=== PATIENT | male | born 1990 | race Hispanic/Latino ===

== ENCOUNTER 2016-10-23 15:43 | Emergency (ER) | payer OTHER ==
[2016-10-23 15:44] VITALS: BMI 20.9
[2016-10-23 16:18] VITALS: BP 106/63; PULSE 67; RESP 17; TEMP 99; O2SAT 97
--- NOTE | 2016-10-23 16:45 | ED PDOC ---
Arrival/HPI - General Historian: Patient - General Chief Complaint: Abnormal Skin Integrity Time Seen by Provider: 10/23/16 16:04 - History of Present Illness Narrative History of Present Illness (Text): 10/23/16 16:42 Patient reports injuring his L hand and wrist when he was using a machine at work and his hand "got caught," event occurred just [employer]. Otherwise: (-) numbness, (-) other injury. Patient is L hand dominant. PMD Black (Santosh LÓPEZ,Serena Braga) Past Medical History - Provider Review Nursing Documentation Reviewed: Yes - Infectious Disease Hx of Infectious Diseases: None - Tetanus Immunization Tetanus Immunization: Up to Date - Cardiac Hx Cardiac Disorders: No - Pulmonary Hx Respiratory Disorders: No - Neurological Hx Headaches: Yes Other/Comment: shingles - HEENT Hx HEENT Disorder: No - Renal Hx Renal Disorder: No Other/Comment: hyponatremia - Endocrine/Metabolic Hx Endocrine Disorders: No - Hematological/Oncological Hx Shingles: Yes - Integumentary Hx Dermatological Disorder: No - Musculoskeletal/Rheumatological Hx Musculoskeletal Disorders: No - Gastrointestinal Hx Gastrointestinal Disorders: No - Genitourinary/Gynecological Hx Genitourinary Disorders: No - Psychiatric Hx Psychophysiologic Disorder: No Hx Depression: No Hx Emotional Abuse: No Hx Physical Abuse: No Hx Substance Use: Yes - Anesthesia Hx Anesthesia: No Hx Anesthesia Reactions: No Hx Malignant Hyperthermia: No - Suicidal Assessment Feels Threatened In Home Enviroment: No Family/Social History - Physician Review Nursing Documentation Reviewed: Yes Family/Social History: No Known Family HX Smoking Status: Heavy Smoker > 10 Cigarettes Daily Hx Alcohol Use: Yes Frequency of alcohol use: Socially Hx Substance Use: Yes Substance used: marijuana Hx Substance Use Treatment: No Allergies/Home Meds Allergies/Adverse Reactions: Allergies No Known Allergies Allergy (Verified 06/06/16 20:55) Review of Systems - Review of Systems Constitutional: Normal. absent: Fatigue, Weight Change, Fevers Musculoskeletal: Normal, Arthralgias. absent: Back Pain, Neck Pain Skin: Normal. absent: Rash, Pruritis, Skin Lesions Physical Exam - Physical Exam Narrative Physical Exam (Text): 10/23/16 16:45 GENERAL APPEARANCE: Patient is awake, alert, oriented x 3, in moderate painful distress. SKIN: Warm, dry; (-) cyanosis. HAND: (+) 2 abrasions, (+) tenderness, (+) swelling, (-) ecchymosis of the dorsal proximal hand; (-) crepitus, (-) deformity. Tendon function intact. (- ) distal neurovascular deficit. 2 point discrimination intact. Remainder of the hand and all digits are normal with no injury, no tenderness. WRIST: (+) Tenderness, (+) swelling, (-) ecchymosis of the dorsal wrist. (-) deformity. (-) snuff-box tenderness. (-) distal neurovascular deficit. Elbow, forearm: (-) tenderness, (-) injury. (Santosh LÓPEZ,Serena Braga) Vital Signs Temp Pulse Resp BP Pulse Ox 10/23/16 16:05 99 F 67 17 106/63 97 Medical Decision Making ED Course and Treatment: I was available for consultation during PA evaluation. The chart reviewed by me , and I agree with disposition. The documented history was done by the physician gear lapping machine operator. The documented physical exam was done by the physician gear lapping machine operator. The documented procedures were done by the physician gear lapping machine operator. (Theo Mejia) 10/23/16 16:47 26 yo M presents after traumatic injury to the L hand and wrist. XR L hand / wrist ordered. Given tramadol po. XR L hand: (+) FB to the mid phalanx of the 5th digit, no fracture, no dislocation, as read by PA and confirmed by the radiologist. XR L wrist: no fracture, no dislocation, as read by PA and confirmed by the radiologist. X-ray results discussed with the patient in great detail. Of note patient states that the foreign body in his fifth digit is not new and did not have been from the injury today. He states that he is unaware that he had a foreign body in his fifth finger and has no recollection of how the foreign body could have become embedded inside of his finger. Wound was cleaned, bacitracin and clean dressing applied. Alexandro wrap applied to the left hand by PA. Patient advised to continue elevating his left hand and wrist and to continue to apply ice for the next 3 days without fail Patient states he fully agrees with and understands discharge instructions. States that he agrees with the plan and disposition. Verbalized and repeated discharge instructions and plan. I have given the patient opportunity to ask any additional questions. Follow up with workman's comp in 1-2 days without fail. Advised to take medication as prescribed. Return to the emergency room at any time for any new or worsening symptoms. (Santosh LÓPEZ,Serena Braga) - RAD Interpretation Radiology Orders: 10/23/16 16:32 HAND LEFT 3 VIEWS ROUTINE [RAD] Stat WRIST, LEFT 3 VIEWS [RAD] Stat - Medication Orders Current Medication Orders: Discontinued Medications Naproxen (Anaprox Ds) 550 mg PO ONCE STA Stop: 10/23/16 17:48 Last Admin: 10/23/16 17:57 Dose: 550 mg Tramadol HCl (Ultram) 50 mg PO STAT STA Stop: 10/23/16 16:33 Last Admin: 10/23/16 16:52 Dose: 50 mg Tramadol HCl (Ultram) 50 mg PO STAT STA Stop: 10/23/16 17:48 Last Admin: 10/23/16 17:57 Dose: 50 mg - PA / LEARNING DISABLED TEACHER / Resident Statement MD/DO has reviewed & agrees with the documentation as recorded. Disposition/Present on Arrival - Present on Arrival Any Indicators Present on Arrival: No History of DVT/PE: No History of Uncontrolled Diabetes: No Urinary Catheter: No History of Decub. Ulcer: No History Surgical Site Infection Following: None - Disposition Have Diagnosis and Disposition been Completed?: Yes Disposition Time: 18:00 Patient Plan: Discharge - Disposition Diagnosis: Crushing injury of hand, left Disposition: HOME/ ROUTINE Condition: GOOD Discharge Instructions (ExitCare): Crush Injury (ED) Print Language: NAMIBIAN Additional Instructions: Thank you for letting us take care of you today. You were treated for crush injury to the left hand and wrist. The emergency medical care you received today was directed at your acute symptoms. If you were prescribed any medication , please fill it and take as directed. It may take several days for your symptoms to resolve. Return to the Emergency Department if your symptoms worsen , do not improve, or if you have any other problems. Please contact workman's comp doctor in 2 days for re-evaluation and follow up. Bring any paperwork you were given at discharge with you along with any medications you are taking to your follow up visit. Our treatment cannot replace ongoing medical care by a primary care provider (PCP) outside of the emergency department. Thank you for allowing the [facility] team to be part of your care today. Prescriptions: Naproxen 500 mg PO BID #30 tab traMADol [Ultram] 50 mg PO TID #15 tab Referrals: Linda Adamson MD [Primary Care Provider] - Follow up with primary Calvin Sharpe MD [Staff Provider] - Follow up with primary Forms: WORK NOTE
--- NOTE | 2016-10-23 17:41 | RAD ---
PROCEDURE: Left hand radiographs Left wrist radiographs HISTORY: trauma COMPARISON: None available. FINDINGS: BONES: No acute displaced fracture. JOINTS: No dislocation. SOFT TISSUES: 4 mm linear radiopaque density within the soft tissues at the level of the 5th middle phalanx, reyez aspect consistent with foreign body. OTHER FINDINGS: None. IMPRESSION: 4 mm linear radiopaque density within the soft tissues at the level of the 5th middle phalanx, reyez aspect consistent with foreign body.
[2016-10-23] MEDS ORDERED: Naproxen 550 mg Tab PO STA (17:47)
== END 2016-10-23 18:00 | disposition home or self-care (01) ==
LOC: ED 15:43
DX: S67.22XA Crushing injury of left hand, initial encounter (principal); W31.9XXA Contact with unspecified machinery, initial encounter; Y92.89 Other specified places as the place of occurrence of the external cause; Y99.0 Civilian activity done for income or pay; F17.210 Nicotine dependence, cigarettes, uncomplicated

== ENCOUNTER 2017-08-11 09:21 | Emergency (ER) | payer OTHER ==
[2017-08-11 09:23] VITALS: BMI 20.9
[2017-08-11 09:31] VITALS: BP 114/56; PULSE 60; RESP 20; TEMP 97.8; O2SAT 98
[2017-08-11] MEDS ORDERED: Sodium Chloride 0.9% 250 ML IV STA (09:51)
--- NOTE | 2017-08-11 09:57 | ED PDOC ---
Arrival/HPI - General Historian: Patient - History of Present Illness Time/Duration: 24 hours Symptom Onset: Sudden Symptom Course: Worsening Quality: Stabbing - General Chief Complaint: Eye Problem Time Seen by Provider: 08/11/17 09:48 - History of Present Illness Narrative History of Present Illness (Text): 08/11/17 09:52 Patient is a 27M with no PMH who comes to the ED with a CC of pain in the R. eye. Patient states he was cutting wood in his apartment working on building cabinets when he felt a foreign body hit his eye. He was wearing protective glasses at the time but it still managed to hit him. Patient states after the initial event he flushed his eye and it felt better but when he woke up he found himself in excruciating pain saying it feels like someone scratched his eye. No loss of vision occurred. Patient does not wear eye glasses or contact lenses. (Navneet Larsen) Past Medical History - Infectious Disease Hx of Infectious Diseases: None - Tetanus Immunization Tetanus Immunization: Up to Date - Cardiac Hx Cardiac Disorders: No - Pulmonary Hx Respiratory Disorders: No - Neurological Hx Neurological Disorder: Yes Hx Headaches: Yes Other/Comment: shingles - HEENT Hx HEENT Disorder: No - Renal Hx Renal Disorder: Yes Other/Comment: hyponatremia - Endocrine/Metabolic Hx Endocrine Disorders: No - Hematological/Oncological Hx Blood Disorders: Yes Hx Shingles: Yes - Integumentary Hx Dermatological Disorder: No - Musculoskeletal/Rheumatological Hx Musculoskeletal Disorders: No - Gastrointestinal Hx Gastrointestinal Disorders: No - Genitourinary/Gynecological Hx Genitourinary Disorders: No - Psychiatric Hx Psychophysiologic Disorder: No Hx Depression: No Hx Emotional Abuse: No Hx Physical Abuse: No Hx Substance Use: Yes - Anesthesia Hx Anesthesia: No Hx Anesthesia Reactions: No Hx Malignant Hyperthermia: No - Suicidal Assessment Feels Threatened In Home Enviroment: No Family/Social History Family/Social History: Unknown Family HX Smoking Status: Heavy Smoker > 10 Cigarettes Daily Hx Alcohol Use: Yes Hx Substance Use: Yes Substance used: marijuana Hx Substance Use Treatment: No Allergies/Home Meds Allergies/Adverse Reactions: Allergies No Known Allergies Allergy (Verified 08/11/17 09:24) Review of Systems - Review of Systems Constitutional: Normal Eyes: Eye Pain (R. eye pain). absent: Vision Changes ENT: Normal Respiratory: Normal Cardiovascular: Normal Gastrointestinal: Normal Genitourinary Male: Normal Musculoskeletal: Normal Skin: Normal Neurological: Normal Endocrine: Normal Hemo/Lymphatic: Normal Psychiatric: Normal Physical Exam Temperature: Afebrile Blood Pressure: Normal Pulse: Regular Respiratory Rate: Normal Appearance: Positive for: Uncomfortable Pain Distress: None Mental Status: Positive for: Alert and Oriented X 3 - Systems Exam Head: Present: Atraumatic, Normocephalic Pupils: Present: PERRL Extroacular Muscles: Present: EOMI Conjunctiva: Present: Injected, Other (fermin lamp exam shows corneal abrasion over the right cornea. Fundoscopic exam does not reveal any foreign body) Mouth: Present: Moist Mucous Membranes Neck: Present: Normal Range of Motion Respiratory/Chest: Present: Clear to Auscultation, Good Air Exchange. No: Respiratory Distress, Accessory Muscle Use Cardiovascular: Present: Regular Rate and Rhythm, Normal S1, S2. No: Murmurs Abdomen: Present: Normal Bowel Sounds. No: Tenderness, Distention, Peritoneal Signs Upper Extremity: Present: Normal Inspection. No: Cyanosis, Edema Lower Extremity: Present: Normal Inspection. No: Edema Neurological: Present: GCS=15, CN II-XII Intact, Speech Normal Skin: Present: Warm, Dry, Normal Color. No: Rashes Psychiatric: Present: Alert, Oriented x 3, Normal Insight, Normal Concentration Vital Signs Temp Pulse Resp BP Pulse Ox 08/11/17 09:27 97.8 F 60 20 114/56 L 98 Medical Decision Making ED Course and Treatment: 08/11/17 10:00 27M with corneal abrasion - fermin lamp exam reveal corneal abrasion of R. eye - Tetracaine for analgesic - patient was unable to tolerate Tushar irrigation - Follow up with digging machine operator after ED visit. Patient and digging machine operator aware - erythromycin eye drops (Navneet Larsen) 08/11/17 10:00 27 yo male with corneal abrasion. I placed 2 drops of tetracaine in right eye for pain relief. Patient's pain almost completely resolved. Fluorescene and wood's lamp used to observe a corneal abrasion and the middle of the cornea. There was no foreign body at all on exam. No foreign body visualized in the eye including a close observation under the eye lids. Visual acuity noted 20/25 both eyes. Patient does wear glasses or contacts. Irrigated right eye with appox 50ml NS via tushar lense. Patient did not tolerate the irrigation well so we discontinued it. Case discussed with Dr. Pop, Opthamologist transfer controller. He agreed with plan to discharge patient on erythromycin ointment and to have patient come right now to his office. Patient and mom were given instructions to make sure to follow up with dr. Pop right after this visit for he will be expecting them. Patient was advised to return to the ED if symptoms worsen or any other concern. (Ksotas Ramos) - Medication Orders Current Medication Orders: Discontinued Medications Sodium Chloride (Sodium Chloride 0.9%) 250 mls @ 250 mls/hr IV .Q1H STA Stop: 08/11/17 10:50 Disposition/Present on Arrival - Present on Arrival Any Indicators Present on Arrival: No History of DVT/PE: No History of Uncontrolled Diabetes: No Urinary Catheter: No History of Decub. Ulcer: No History Surgical Site Infection Following: None - Disposition Have Diagnosis and Disposition been Completed?: Yes Disposition Time: 10:06 Patient Plan: Discharge - Disposition Diagnosis: Corneal abrasion, right Disposition: HOME/ ROUTINE Condition: IMPROVED Discharge Instructions (ExitCare): Corneal Abrasion Additional Instructions: Mr Srivastava, thank you for letting us take care of you today. Your provider was Dr. Ramos. You were treated for Corneal Abrasion. The emergency medical care you received today was directed at your acute symptoms. If you were prescribed any medication, please fill it and take as directed. It may take several days for your symptoms to resolve. Return to the Emergency Department if your symptoms worsen, do not improve, or if you have any other problems. MAKE SURE TO FOLLOW UP WITH OPHTHAMOLOGY, DR. POP TODAY AFTER THIS ED VISIT Please contact your doctor or call one of the physicians/clinics you have been referred to that are listed on the Patient Visit Information form that is included in your discharge packet. Bring any paperwork you were given at discharge with you along with any medications you are taking to your follow up visit. Our treatment cannot replace ongoing medical care by a primary care provider (PCP) outside of the emergency department. Thank you for allowing the [facility] team to be part of your care today. If you had an X-Ray or CT scan: A Radiologist will review the ED reading if any change in treatment is needed we will contact you. If you had a blood, urine, or wound culture: It will take several days for the results, if any change in treatment is needed we will contact you. If you had an STI test: It will take 48 hours for the results. Please call after 1 week if you have not heard back. Prescriptions: Erythromycin 0.5% [Ilytocin] 3.5 gm OD QID #1 tube Referrals: Usama Pop MD [Staff Provider] - Follow up with primary Forms: [employer] [facility] (Kazakh), WORK NOTE
== END 2017-08-11 10:05 | disposition home or self-care (01) ==
LOC: ED 09:21
DX: S05.01XA Injury of conjunctiva and corneal abrasion without foreign body, right eye, initial encounter (principal); X58.XXXA Exposure to other specified factors, initial encounter; F17.210 Nicotine dependence, cigarettes, uncomplicated

== ENCOUNTER 2018-03-12 20:35 | Emergency (ER) | payer SELFPAY ==
[2018-03-12 20:35] VITALS: BMI 20.9
[2018-03-12 20:45] VITALS: BP 163/94; PULSE 89; RESP 19; TEMP 98.1; O2SAT 100
[2018-03-12] MEDS ORDERED: Oxycodone/Acetaminophen 5/325 mg Tab PO STA (21:00)
--- NOTE | 2018-03-12 21:13 | ED PDOC ---
Arrival/HPI - General Historian: Patient - History of Present Illness Narrative History of Present Illness (Text): 03/12/18 21:09 27yo male with no significant pmhx who present with right sided toothache that radiates to his right ear, head and neck. Reports crack tooth of his right lower and upper tooth months ago. States pain started a week ago and became worse today. Notes that he took Aleve and Tylenol at home without relieve earlier. Denies fever, chills, trauma, any other complaint. <Cesar Resendiz A - Last Filed: 03/12/18 21:09> <Dagoberto Sousa - Last Filed: 03/13/18 06:15> - General Chief Complaint: Dental Pain Time Seen by Provider: 03/12/18 21:00 Past Medical History - Provider Review Nursing Documentation Reviewed: Yes - Infectious Disease Hx of Infectious Diseases: None - Tetanus Immunization Tetanus Immunization: Up to Date - Cardiac Hx Cardiac Disorders: No - Pulmonary Hx Respiratory Disorders: No - Neurological Hx Neurological Disorder: Yes Hx Headaches: Yes Other/Comment: shingles - HEENT Hx HEENT Disorder: No - Renal Hx Renal Disorder: Yes Other/Comment: hyponatremia - Endocrine/Metabolic Hx Endocrine Disorders: No - Hematological/Oncological Hx Blood Disorders: Yes Hx Shingles: Yes - Integumentary Hx Dermatological Disorder: No - Musculoskeletal/Rheumatological Hx Musculoskeletal Disorders: No - Gastrointestinal Hx Gastrointestinal Disorders: No - Genitourinary/Gynecological Hx Genitourinary Disorders: No - Psychiatric Hx Psychophysiologic Disorder: No Hx Depression: No Hx Emotional Abuse: No Hx Physical Abuse: No Hx Substance Use: Yes - Anesthesia Hx Anesthesia: No Hx Anesthesia Reactions: No Hx Malignant Hyperthermia: No - Suicidal Assessment Feels Threatened In Home Enviroment: No <Cesar Resendiz A - Last Filed: 03/12/18 21:09> Family/Social History - Physician Review Nursing Documentation Reviewed: Yes Family/Social History: Unknown Family HX Smoking Status: Heavy Smoker > 10 Cigarettes Daily Hx Alcohol Use: Yes Frequency of alcohol use: Few days per week Hx Substance Use: Yes Substance used: marijuana Hx Substance Use Treatment: No <Cesar Resendiz A - Last Filed: 03/12/18 21:09> Allergies/Home Meds <Cesar Resendiz - Last Filed: 03/12/18 21:09> <Dagoberto Sousa - Last Filed: 03/13/18 06:15> Allergies/Adverse Reactions: Allergies No Known Allergies Allergy (Verified 08/11/17 09:24) Review of Systems - Physician Review All systems were reviewed & negative as marked: Yes - Review of Systems Constitutional: Normal Eyes: Normal ENT: Other (Toothache) Respiratory: Normal Cardiovascular: Normal Gastrointestinal: Normal Genitourinary Male: Normal Musculoskeletal: Normal Skin: Normal Neurological: Normal Endocrine: Normal Hemo/Lymphatic: Normal Psychiatric: Normal <DirMidawi HoldingsHappiness - Last Filed: 03/12/18 21:09> Physical Exam Vital Signs Reviewed: Yes Vital Signs Temp Pulse Resp BP Pulse Ox 03/12/18 20:39 98.1 F 89 19 163/94 H 100 Temperature: Afebrile Blood Pressure: Normal Pulse: Regular Respiratory Rate: Normal Appearance: Positive for: Well-Appearing, Non-Toxic, Comfortable Pain Distress: None Mental Status: Positive for: Alert and Oriented X 3 - Systems Exam Head: Present: Atraumatic, Normocephalic Pupils: Present: PERRL Extroacular Muscles: Present: EOMI Conjunctiva: Present: Normal Mouth: Present: Moist Mucous Membranes. No: Normal Teeth (Mutiple missing tooth noted on right sided upper and lower molar and premolar area. No gum swelling. No eeythema. No other complaint.) Neck: Present: Normal Range of Motion Respiratory/Chest: Present: Clear to Auscultation, Good Air Exchange. No: Respiratory Distress, Accessory Muscle Use Cardiovascular: Present: Regular Rate and Rhythm, Normal S1, S2. No: Murmurs Abdomen: No: Tenderness, Distention, Peritoneal Signs Back: Present: Normal Inspection Upper Extremity: Present: Normal Inspection. No: Cyanosis, Edema Lower Extremity: Present: Normal Inspection. No: Edema Neurological: Present: GCS=15, CN II-XII Intact, Speech Normal Skin: Present: Warm, Dry, Normal Color. No: Rashes Psychiatric: Present: Alert, Oriented x 3, Normal Insight, Normal Concentration <[facility] Last Filed: 03/12/18 21:09> Vital Signs Temp Pulse Resp BP Pulse Ox 03/12/18 20:39 98.1 F 89 19 163/94 H 100 <MerryDagoberto - Last Filed: 03/13/18 06:15> Medical Decision Making - Medication Orders Current Medication Orders: Discontinued Medications Amoxicillin (Amoxil 500 Mg Cap) 500 mg PO STAT STA; Protocol Stop: 03/12/18 21:02 Ketorolac Tromethamine (Toradol) 30 mg IM STAT STA Stop: 03/12/18 21:01 Oxycodone/Acetaminophen (Percocet 5/325 Mg Tab) 1 tab PO STAT STA Stop: 03/12/18 21:01 <Cesar Resendiz - Last Filed: 03/12/18 21:09> - Medication Orders Current Medication Orders: Discontinued Medications Amoxicillin (Amoxil 500 Mg Cap) 500 mg PO STAT STA; Protocol Stop: 03/12/18 21:02 Last Admin: 03/12/18 21:32 Dose: 500 mg Ketorolac Tromethamine (Toradol) 30 mg IM STAT STA Stop: 03/12/18 21:01 Last Admin: 03/12/18 21:31 Dose: 30 mg MAR Pain Assessment Document 03/12/18 21:31 TA (Rec: 03/12/18 21:32 TA [facility] [id number] Pain Reassessment Is this a pain reassessment? Yes Sleep Is patient sleeping during reassessment? No Presence of Pain Presence of Pain Yes Pain Scale Used Protocol: [facility] Pain Scale Used Numeric Location Upper or Lower Upper Description Pain Behavior Moaning Crying Guarding Restlessness IM Administration Charges Document 03/12/18 21:31 TA (Rec: 03/12/18 21:32 TA [facility] [id number] Injection Site MAR Injection Site Left Deltoid Charges for Administration # of IM Administrations 1 Oxycodone/Acetaminophen (Percocet 5/325 Mg Tab) 1 tab PO STAT STA Stop: 03/12/18 21:01 Last Admin: 03/12/18 21:30 Dose: 1 tab MAR Pain Assessment Document 03/12/18 21:30 TA (Rec: 03/12/18 21:31 TA [facility] [id number] Pain Reassessment Is this a pain reassessment? Yes Sleep Is patient sleeping during reassessment? No Presence of Pain Presence of Pain Yes Pain Scale Used [facility] Used Numeric Location Upper or Lower Upper Description Description Constant Pain Behavior Moaning Crying Restlessness <Dagoberto Sousa - Last Filed: 03/13/18 06:15> - PA / STOCK DRIVER / Resident Statement / has reviewed & agrees with the documentation as recorded. <Dagoberto Sousa - Last Filed: 03/13/18 06:15> Disposition/Present on Arrival - Present on Arrival Any Indicators Present on Arrival: No History of DVT/PE: No History of Uncontrolled Diabetes: No Urinary Catheter: No History of Decub. Ulcer: No History Surgical Site Infection Following: None - Disposition Have Diagnosis and Disposition been Completed?: Yes Disposition Time: 21:15 Patient Plan: Discharge <Cesar Resendiz - Last Filed: 03/12/18 21:09> <Dagoberto Sousa - Last Filed: 03/13/18 06:15> - Disposition Diagnosis: Dental caries Disposition: HOME/ ROUTINE Condition: STABLE Discharge Instructions (ExitCare): Dental Pain Additional Instructions: Follow up with a Dentist Return to ED for any new symptoms Prescriptions: RX: Amoxicillin 500 mg PO TID #21 tab RX: Ibuprofen [Motrin Tab] 600 mg PO Q6 #15 tab Acetaminophen with Codeine [Tylenol with Codeine No. 3 300 mg-30 mg] 1 tab PO Q6 #4 tab Referrals: Linda Torres MD [Medical Doctor] - Follow up with primary Forms: [employer] (Chinese)
== END 2018-03-12 21:36 | disposition home or self-care (01) ==
LOC: ED 20:35
DX: K02.9 Dental caries, unspecified (principal)
CPT/HCPCS: 96372; 99282; J1885